=== PATIENT | female | born 1980 | race Caucasian/White ===

== ENCOUNTER 2023-04-15 12:28 | Outpatient (CLI) | payer BC, SELFPAY ==
--- NOTE | ~2023-04-15 | US_ITS ---
EXAMINATION: US pelvic complete w TV DATE: 04/15/2023 13:01 INDICATION: Assess IUD position TECHNIQUE: Multiple transabdominal and endovaginal sonographic images of the pelvis were obtained. COMPARISON: None. FINDINGS: The uterus measures 11.9 x 6.1 x 5.1 cm. The endometrial complex measures 7 mm. The IUD obed ears to be in expected position. Nabothian cysts are noted in the cervix. The right ovary measures 2. 2 x 2.5 x 2.6 cm. The left ovary measures 3.2 x 2.7 x 1.8 cm. There is normal vascular flow in the ov andreina. There is a small amount of likely physiologic free fluid in the pelvis. IMPRESSION: 1. IUD appears to be in expected position. Reviewed, dictated and finalized at location []
--- NOTE | ~2023-04-15 | MM_ITS ---
EXAMINATION: MM screening mariama BI w lakisha HISTORY: Screening mammogram; baseline examination. TECHNIQUE: Craniocaudal and mediolateral oblique 3-D tomosynthesis images were obtained and synthetic 2-D images were generated. CAD analysis was submitted and interpreted. COMPARISON: No prior mammogram is available for comparison at this institution. BREAST PARENCHYMAL COMPOSITION: There are scattered areas of fibroglandular density. FINDINGS: Bilateral breast masses are noted. Bilateral diagnostic mammography and breast ultrasound e xamination are recommended. IMPRESSION: 1. Bilateral breast masses 2. Bilateral diagnostic mammography and breast ultrasound examination are recommended BI-RADS Category 0: Incomplete: Needs additional imaging evaluation. Reviewed, dictated and finalized at location A. IMPRESSION: 1. Bilateral breast masses 2. Bilateral diagnostic mammography and breast ultrasound examination are recom mended BI-RADS Category 0: Incomplete: Needs additional imaging evaluation.
== END 2023-04-15 12:29 | disposition home or self-care (01) ==
LOC: CHSIMG 12:30
PROVIDERS: PCP Internal Medicine; Visit Provider Nurse Practitioner Family
DX: Z12.31 Encounter for screening mammogram for malignant neoplasm of breast (principal); Z30.431 Encounter for routine checking of intrauterine contraceptive device; R92.8 Other abnormal and inconclusive findings on diagnostic imaging of breast
CPT/HCPCS: 76830; 76856; 77063; 77067

== ENCOUNTER 2023-04-30 08:51 | Outpatient (CLI) | payer BC, SELFPAY ==
--- NOTE | ~2023-04-30 | MMUS_ITS ---
EXAMINATION: MM diagnostic mariama BI w lakisha, US breast BI complete HISTORY: Bilateral breast masses noted on 04/07/2023 screening mammogram examination TECHNIQUE: Additional 3-D tomosynthesis images of both breasts were performed and synthetic 2-D image s were generated. CAD analysis was submitted and interpreted. High resolution complete bilateral carmen st ultrasound examination including all 4 quadrants and subareolar areas was performed. COMPARISON: 04/15/2023 bilateral screening mammogram FINDINGS: MAMMOGRAPHIC FINDINGS: Scattered bilateral low-density circumscribed opacities are suggested. No spiculated mass or architectural distortion, malignant calcification, skin thickening or retractio n of either breast is detected. ULTRASOUND: Right breast: Prominent ducts are noted. There are numerous scattered circumscribed hypoechoic, sonolucent and sept ated sonolucent lesions of variable size, mostly subcentimeter in size. No suspicious mass or shadowi ng is evident. Left breast: Prominent ducts are noted. There are multiple circumscribed sonolucent, septated sonolucent and hypoe choic solid lesions, without internal vascularity or posterior shadowing. The largest is a multi sept ated cyst situated in the 10:00 position 2 cm from the nipple, parallel, circumscribed with no internal recruiter al vascularity, with through transmission. No suspicious mass or shadowing is detected. IMPRESSION: 1. Benign findings 2. Routine annual mammographic screening is recommended BI-RADS Category 2: Benign finding(s). Reviewed, dictated and finalized at location A. IMPRESSION: 1. Benign findings 2. Routine annual mammographic screening is recommended BI-RADS Category 2: Benign finding(s).
== END 2023-04-30 08:52 | disposition home or self-care (01) ==
LOC: CHSIMG 08:52
PROVIDERS: PCP Internal Medicine; Visit Provider Nurse Practitioner Family
DX: R92.8 Other abnormal and inconclusive findings on diagnostic imaging of breast (principal)
CPT/HCPCS: 76641; 77062; 77066; G0279